=== PATIENT | male | born 1980 | race Two or more races ===

== ENCOUNTER → 2019-06-07 | Outpatient (CLI) | payer OTHER ==
[~2019-06-07] MED LIST: IOHEXOL 350 MG/ML 100ML IJ ONE
[2019-06-07 10:10] VITALS: BP 104/68
[2019-06-07 10:53] VITALS: BP 104/68
== END | disposition home or self-care (01) ==
LOC: Rad HDHVI 09:55
PROVIDERS: ATTEND Internal Medicine Cardiovascular Disease
DX: R06.02 Shortness of breath (principal); G89.29 Other chronic pain; M47.819 Spondylosis without myelopathy or radiculopathy, site unspecified
CPT/HCPCS: 71275; G0463; Q9967

== ENCOUNTER → 2019-06-24 | Outpatient (CLI) | payer OTHER ==
[~2019-06-24] VITALS: Ht 170.2 cm; Wt 111.1 kg
[~2019-06-24] MED LIST changes: +ADENOSINE 90 MG/30 ML INJ IV ONE; +ADENOSINE 93 MG in GIVE UN-DILUTED 0 ML IV ONE; -IOHEXOL 350 MG/ML 100ML IJ ONE
== END | disposition home or self-care (01) ==
LOC: Rad HDHVI 13:40
PROVIDERS: ATTEND Internal Medicine Cardiovascular Disease
DX: E78.00 Pure hypercholesterolemia, unspecified (principal); I10 Essential (primary) hypertension; Z82.49 Family history of ischemic heart disease and other diseases of the circulatory system
CPT/HCPCS: 78452; 93005; 93306; 96374; 96375; A9500; J0153

== ENCOUNTER → 2021-06-07 | Outpatient (CLI) | payer MEDICAID, OTHER | END | disposition home or self-care (01) | LOC: Rad HDHVI 13:58 | PROVIDERS: ATTEND Internal Medicine Cardiovascular Disease | DX: I10 Essential (primary) hypertension (principal) | CPT/HCPCS: 93306 ==

== ENCOUNTER → 2021-06-25 | Outpatient (CLI) | payer MEDICAID ==
[~2021-06-25] MED LIST changes: -ADENOSINE 90 MG/30 ML INJ IV ONE; -ADENOSINE 93 MG in GIVE UN-DILUTED 0 ML IV ONE; +ATOR10TA52 PO; +ESCI10TA PO; +FURO20TA3 PO; +GABA300C10 PO; +HYDR-4798 PO; +IBUP800T27 PO; +LISI-706 PO; +LORA10CA12 PO; +POTA-167 PO
[2021-06-25 09:22] VITALS: BP 112/66
[2021-06-25 09:44] VITALS: BP 116/63
[2021-06-25 10:01] LABS: Basophils # (auto) 0.1 10 ^3/uL (0-0.2); Basophils % (auto) 0.5 % (0.0-2.0); Eosinophils # (auto) 0.1 10 ^3/uL (0-0.8); Eosinophils % (auto) 0.7 % (0.0-7.0); Hematocrit 43.7 % (41.0-53.0); Lymphocytes % (auto) 17.8 % (10.0-50.0); Mean Corpuscular Hemoglobin 29.4 pg (28.0-32.0); Mean Corpuscular Hgb Conc. 34.4 g/dL (32.0-36.0); Mean Corpuscular Volume 85.6 fL (80.0-100.0); Monocytes # (auto) 0.6 10 ^3/uL (0-1.3); Monocytes % (auto) 4.9 % (0.0-12.0); Neutrophils # (auto) 8.7 10 ^3/uL (1.6-8.6); Neutrophils % (auto) 76.1 % (37.0-80.0); Nucleated Red Blood Cells % 0.1 %; Red Blood Cells 5.11 10^6/uL (4.5-5.90); Red Cell Distribution Width 13.5 % (11.8-14.3); White Blood Cell 11.5 10^3/uL (4.4-10.8)
[2021-06-25 10:08] LABS: INR 0.98 (0.9-1.15); Partial Thromboplastin Time 24.5 sec (23.6-33.0)
[2021-06-25 10:36] LABS: Potassium 3.5 mmol/L (3.5-5.1)
[2021-06-25 10:50] LABS: BUN/Creatinine Ratio 16.3; Calcium 8.9 mg/dL (8.5-10.1)
== END | disposition home or self-care (01) ==
LOC: Rad HDHVI 09:11
PROVIDERS: ATTEND Internal Medicine Cardiovascular Disease
DX: Z01.812 Encounter for preprocedural laboratory examination (principal); I11.0 Hypertensive heart disease with heart failure; I50.9 Heart failure, unspecified; R06.02 Shortness of breath; M47.814 Spondylosis without myelopathy or radiculopathy, thoracic region
CPT/HCPCS: 36415; 71046; 80048; 85025; 85610; 85730; 93005; G0463

== ENCOUNTER 2021-07-02 11:01 | Day surgery (SDC) | payer MEDICAID ==
[~2021-07-02] VITALS: Ht 170.2 cm; Wt 141.5 kg
[2021-07-02] VITALS (9 sets, daily range): BP systolic 108–144; BP diastolic 64–95
[2021-07-02] MEDS ORDERED: ANGIOMAX 250 MG VIAL IV ONE (12:12)
[2021-07-02] MEDS ORDERED: MIDAZOLAM HCL 2MG/2ML 2ml VIAL (1mg/ml) ONE (12:12)
[2021-07-02] MEDS ORDERED: fentaNYL CITRATE 100 MCG/2 ML VL ONE (12:12)
[2021-07-02] MEDS ORDERED: LIDOCAINE 2%HCL (LOCAL ANESTH.) INJ 10ml MDV ONE (12:13)
[2021-07-02] MEDS ORDERED: IOHEXOL 350 MG/ML 100ML IJ ONE (12:13)
[2021-07-02] MEDS ORDERED: SODIUM CHL 0.9% 0 ML ONE (12:13)
== END 2021-07-02 16:10 | disposition home or self-care (01) ==
LOC: CATH 11:01
PROVIDERS: ATTEND Internal Medicine Cardiovascular Disease
DX: R94.39 Abnormal result of other cardiovascular function study (principal); I25.10 Atherosclerotic heart disease of native coronary artery without angina pectoris; I11.0 Hypertensive heart disease with heart failure; I50.9 Heart failure, unspecified; E66.01 Morbid (severe) obesity due to excess calories; M19.90 Unspecified osteoarthritis, unspecified site; F32.A Depression, unspecified; J45.909 Unspecified asthma, uncomplicated; Z82.49 Family history of ischemic heart disease and other diseases of the circulatory system; Z87.891 Personal history of nicotine dependence; Z99.2 Dependence on renal dialysis; Z68.42 Body mass index [BMI] 45.0-49.9, adult; Z20.822 Contact with and (suspected) exposure to COVID-19
CPT/HCPCS: 75736; 93458; C1760; C1894; J1644; J2001; J2250; J3010; Q9967; U0003; 99152